=== PATIENT | male | born 1945 | race Caucasian/White ===

== ENCOUNTER 2017-01-14 00:07 | Emergency (ER) | payer MEDICARE ==
[~2017-01-14] VITALS: Ht 188 cm; Wt 79.5 kg
[~2017-01-14 00:07] MED LIST: CALC1TAB91 PO; MULT1CAP33 PO; OMEG-38 PO; OMEG1CAP15 PO; PSYL1000 PO
[2017-01-14 00:12] VITALS: BP 167/98; PULSE 84; RESP 16; O2SAT 98
--- NOTE | 2017-01-14 00:16 | ED.REPORT ---
HPI-Abd Pain M 40 and Over Date of Service Jan 14, 2017 ED Provider: Shy Kimball MD Pt is a 71 y/o healthy male presenting to the ED w/ his c/o waxing and waning R flank pain with radiation to the right abdomen onset about 5 hours ago. He c/o associated nausea, mild vomiting. Pt denies hematuria, dysuria, diarrhea, testicular pain, fever, chills. He denies history of kidney stones. Nursing Notes Stated Complaint: RIDE SIDED PAIN/VOMITING Chief Complaint: Male Abdominal Pain Nursing Notes Reviewed: Yes Allergies: Coded Allergies: No Known Allergies (Unverified , 01/14/17) Scheduled Calcium Citrate/Vitamin D3 (Calcitrate + Vit D Caplet) 1 Each Tablet 1 EACH PO DAILY Multivitamin (Multivitamins) 1 Each Capsule 1 EACH PO DAILY [place]-3 Fatty Acids/Fish Oil (Fish Oil 1,000 mg Softgel) 1 Each Capsule 1 EACH PO HS [place]-3/Dha/Epa/Fish Oil (Fish Oil 1,000 mg Softgel) 1 Each Capsule 2 EACH PO DAILY Psyllium Husk (Psyllium Husk) 1,000 Gm Powder 1,000 GM PO HS Scheduled PRN Ondansetron ODT (Zofran ODT) 4 Mg Tablet 4 MG PO Q4H PRN PRN For Nausea General Time Seen by MD: 00:11 Chief Complaint Flank pain right Hx Obtained From: Patient Arrived By: Walk-in Sudden in Onset?: Yes Onset Occurred: 5 - 8 hours ago Symptom Duration: Waxes and wanes Progression since Onset: Waxes and wanes Location: : Flank right Quality: Painful Radiation: : RLQ: RUQ Severity: Current: Mild Severity: Maximum: Moderate Recent Healthcare: No recent doctor visit, No recent hospitalization Similar Sx Previous: No Past Medical History Past Medical History Healthy Hx shingles Past Surgical History None reported Smoking History Never Smoker Ambulatory Status Independent Review of Systems Constitutional: Denies: Chills, Fever Respiratory: Denies: Non-productive cough GI: Reports: Abdominal pain, Nausea, Vomiting, Denies: Diarrhea Male: Reports Flank pain, Denies Dysuria, Denies Hematuria, Denies Testicular pain Complete sys rev & neg: except as marked. Physical Exam Initial Vital Signs Vital Signs (First) Date Time Temp Pulse Resp B/P Pulse Ox O2 Delivery O2 Flow Rate FiO2 01/14/17 00:12 36.2 84 16 167/98 98 Room Air Initial VS: Reviewed, Vital signs abnormal Head / Eyes: Atraumatic, Normocephalic, PERRL ENT: Mucous membranes moist, Conjunctiva normal, No scleral icterus Neck: Supple, Full range of motion Extremities: Vascular intact, Neuro intact, No swelling, No tenderness Neurologic: Alert, Oriented, Nonfocal Psychiatric: Mood/affect normal, Behavior normal, Normal thought content General/Constitutional: Awake, Alert, No acute distress, Well appearing, Cooperative, Not toxic appearing Respiratory / Chest: Atraumatic, Breath sounds NL, Breath sounds = bilat, No respiratory distress, No rales, No rhonchi, No wheezing, No retractions, No stridor, No chest tenderness, No chest wall deformity, No crepitus Cardiovascular: Heart rate NL, Regular rhythm, Heart sounds NL, No gallop, No murmurs, No rubs, Cap refill not delayed, Peripheral circulation NL Abdomen: Atraumatic, Soft, Non-tender, No guarding, No rebound, No distention, No palpable mass Back: Full range of motion, Painless range of motion, No CVA tenderness Interpretation & Diagnostics Lab Results Interpretation Result Diagram: 01/14/17 0038 01/14/17 0038 Test 01/14/17 00:38 01/14/17 01:15 White Blood Count 7.9th/mm3 (3.8-10.1) Red Blood Count 4.52mil/mm3 (4.40-5.80) Hemoglobin 14.9g/dL (13.8-17.2) Hematocrit 43.2% (41.0-50.0) Mean Corpuscular Volume 95.6fL (81-100) Mean Corpuscular Hemoglobin 33.0pg (27.0-35.0) Mean Corpuscular Hemoglobin Concent 34.5% (32.0-37.0) Red Cell Distribution Width 13.0% (12.3-15.4) Platelet Count 194bil/L (150-400) Neutrophils (%) (Auto) 66.1% (40-74) Lymphocytes (%) (Auto) 20.7% (14-46) Monocytes (%) (Auto) 8.5% (4-12) Eosinophils (%) (Auto) 3.8% (0-5) Basophils (%) (Auto) 0.6% (0-3) Sodium Level 139mEq/L (134-144) Potassium Level 4.2mEq/L (3.5-5.2) Chloride Level 99mEq/L (97-108) Carbon Dioxide Level 25mmol/L (18-29) Blood Urea Nitrogen 17mg/dL (8-27) Creatinine 0.76mg/dL (0.76-1.27) Estimat Glomerular Filtration Rate 107mL/min (>59) Glucose Level 87mg/dL (60-99) Calcium Level 9.0mg/dL (8.5-10.1) Magnesium Level 2.3mg/dL (1.6-2.6) Total Bilirubin 0.2mg/dL (0.0-1.2) Aspartate Amino Transf (AST/SGOT) 24U/L (0-50) Alanine Aminotransferase (ALT/SGPT) 23U/L (0-44) Alkaline Phosphatase 58U/L (25-160) Total Protein 7.4g/dL (6.4-8.4) Albumin 4.6g/dL (3.4-5.0) Lipase 41U/L (13-60) Urine Color Yellow (YELLOW) Urine Appearance Hazy (CLEAR,HAZY) Urine pH 7.5 (5.0-8.0) Urine Specific [place] 1.015 (1.003-1.035) Urine Protein Negativemg/dL (NEG,TRACE) Urine Glucose (UA) Negativemg/dL (NEGATIVE) Urine Ketones Negativemg/dL (NEGATIVE) Urine Occult Blood Negative (NEGATIVE) Urine Nitrite Negative (NEGATIVE) Urine Bilirubin Negative (NEGATIVE) Urine Urobilinogen Normalmg/dL (NORMAL) Urine Leukocyte Esterase Negative (NEGATIVE) Urine RBC 0-2/hpf (0-2) Urine WBC 0-5/hpf (0-5) Urine Epithelial Cells Occasional/hpf (NONE-MOD) Urine Crystals Amorphous phosphates Urine Bacteria None/hpf (NONE-FEW) Urine Hyaline Casts None/lpf (NONE) Urine Granular Casts None seen (NONE SEEN) Urine Waxy Casts None seen (NONE SEEN) Urine Red Blood Cell Casts None seen (NONE SEEN) Urine White Blood Cell Casts None seen (NONE SEEN) Urine Mucus None seen (None Seen) Urine Trichomonas None seen (NONE SEEN) Urine Yeast None (NONE SEEN) Urine Culture Reflexed Not indicated CT Abd / Pelvis Interpretation Conclusion: No specific acute or active process. Diverticulosis. Transmitted to the ED at 00:55 Study type: Abdominal CT no contrast Interpretation / Wet Read by: Interpret - Radiologist Re-Eval/Medical Decision Med Decision/Clinical Course 71-year-old male with no past medical history here with right flank pain associated with one episode of vomiting. Differential diagnosis includes but is not limited to nephrolithiasis versus pyelonephritis versus UTI versus AAA. Patient's CT scan is negative for stone, AAA. His urinalysis is normal. At this time, I do not know the cause of his pain, however, I feel confident that it is not a life-threatening cause. He has been given a prescription for Zofran to go home with, and is amenable to discharge at this time with follow- up with his primary care physician. He has been given very strict return precautions. Time of Eval: 01:53 )( Re-Eval Abdomen: Soft, Non-tender Patient Status: Condition improved, Moderate relief, Pain resolved Re-Evaluation/Progress Note: Pt rechecked. Informed pt of plan for treatment. Pt understands and agrees with plan for treatment. F/U instructions and RTER warnings given. All questions addressed. Counseled Regarding: Diagnosis, Lab results, Need for follow-up, When/why to return to ED Discharge & Departure Primary Impression: Right flank pain Disposition: Home Vital Signs - All Vital Signs Date Time Temp Pulse Resp B/P Pulse Ox O2 Delivery O2 Flow Rate FiO2 01/14/17 00:12 36.2 84 16 167/98 98 Room Air )( All Prior VS Reviewed: Yes Condition: Stable Patient Instructions: Acute Abdominal Pain (ED), Renal Colic (ED) Additional Instructions: Your CT scan today showed no signs of active kidney stones. The pain you experienced earlier may have been related to the passing of a kidney stone. Your labs were normal. Your urine showed no sign of infection. Take Zofran as needed for nausea or vomiting. Return to the emergency department for severe pain, persistent vomiting, high fever, profound weakness, or for other concerning symptoms. Follow-up with your primary care doctor in 1 week or earlier if symptoms persist. A urology consult may be considered at that time. Referrals: Erich Wen MD (PCP) Scribe Attestation Portions of this note were transcribed by Nazario Morrissey. I, Dr. Kimball, personally performed the history, physical exam and medical decision-making; I reviewed and confirmed the accuracy of the information in the transcribed note. Signed by Teresa Beebe, 01/14/17 - 0100 copies to: Erich Wen MD, Rebecca A MD Jan 14, 2017 00:16 NAZARIO MORRISSEY Jan 14, 2017 00:32
[2017-01-14] MEDS ORDERED: 0.9% Sodium Chloride 1,000 ML IV ONE (00:28)
[2017-01-14] MEDS ORDERED: Ondansetron 2 mg/mL 2 mL Inj IVPUSH ONE (00:30)
[2017-01-14 00:58] LABS: BASOPHILS % (AUTO) 0.6 % (0-3); EOSINOPHILS % (AUTO) 3.8 % (0-5); MONOCYTES % (AUTO) 8.5 % (4-12); Mean Corpuscular Volume 95.6 fL (81-100); NEUTROPHILS % (AUTO) 66.1 % (40-74); Platelet Count 194 bil/L (150-400)
[2017-01-14 01:28] LABS: Magnesium 2.3 mg/dL (1.6-2.6)
[2017-01-14 01:49] LABS: APPEARANCE,URINE HAZY (CLEAR,HAZY); COLOR,URINE YELLOW (YELLOW); OCCULT BLOOD,URINE NEGATIVE (NEGATIVE); PH,URINE 7.5 (5.0-8.0); UROBILINOGEN,URINE NORMAL (NORMAL)
[2017-01-14] MEDS ORDERED: ONDA4TAB9 PO (01:55)
[2017-01-14 02:00] VITALS: BP 129/74; PULSE 76; RESP 18; O2SAT 96
--- NOTE | 2017-01-14 08:36 | DRSVH ---
PROCEDURE: CT KUB ([id number]) INDICATIONS: right flank pain TECHNIQUE: Noncontrast 5 mm thick sections acquired from the diaphragms to the symphysis. 5 mm thick coronal an d sagittal reformats were then performed. For radiation dose reduction, the following was used: aut omated exposure control, adjustment of mA and/or kV according to patient size. COMPARISON: None. FINDINGS: Image quality: Excellent. Lung bases: Lung bases are clear. Heart size is normal. Urinary system: Both kidneys are normal in size. No kidney stones. No hydronephrosis or perinephri c fat stranding. Both ureters appear non-dilated throughout their expected courses. Bladder wall th ickness is normal; no calcified bladder stones. Other solid organs: Liver and spleen are normal in size. Gallbladder is normal. Pancreas is normal in contours. No adrenal nodules. Peritoneum and bowel: Unenhanced bowel loops demonstrate normal wall thickness and caliber. There a re numerous sigmoid diverticula. No evidence for active diverticulitis. No free fluid or air. Nodes and vessels: No retroperitoneal or mesenteric adenopathy by size criteria. Aorta and inferior vena cava are normal in caliber. Abdominal wall: No ventral hernias. Pelvis: No free pelvic fluid. No inguinal hernias or adenopathy. Bones: No suspicious bony lesions. No vertebral body compression fractures. IMPRESSION: 1. No urinary stones or hydronephrosis. No CT findings to explain right flank pain. 2. Sigmoid diverticulosis. No active diverticulitis. No significant discrepancy with the wire harness assembler radiology preliminary report. Dictated by: Harsh Shaffer M.D. on 01/14/2017 at 8:31 Approved by: Harsh Shaffer M.D. on 01/14/2017 at 8:34
== END 2017-01-14 02:05 | disposition home or self-care (01) ==
LOC: SED 00:07
DX: R10.9 Unspecified abdominal pain (principal); R11.2 Nausea with vomiting, unspecified
CPT/HCPCS: 36415; 74176; 80053; 81000; 83690; 83735; 85025; 96361; 96374; 99285; J2405; J7030